=== PATIENT | male | born 1940 | race Caucasian/White ===

== ENCOUNTER 2017-05-27 16:19 | Inpatient (IN) ==
[2017-05-27] MEDS ORDERED: GLUCAGON 1 MG VIAL IM PRN (16:27)
[2017-05-27] MEDS ORDERED: DEXTROSE 50% 25 GM/50 ML VIAL IV PRN (16:27)
[2017-05-27] MEDS ORDERED: ALBUTEROL/IPRATROPIUM 3 ML NEB RESP TX PRN (16:27)
[2017-05-27] MEDS ORDERED: ONDANSETRON ODT 4 MG TABLET PO PRN (16:34)
[2017-05-27] MEDS ORDERED: THEOPHYLLINE ER 100 MG TABLET PO SCH (17:00)
[2017-05-27 19:49] LABS: Basophils % 0.4 % (0.0-0.8); Eosinophils # 0.1 10*3/uL (0.0-0.87); Eosinophils % 1.7 % (0.00-10.9); Hematocrit 34.3 VOL% (42.0-52.0); Hemoglobin 10.5 GM/DL (14.0-18.0); Immature Granulocytes % 1.1 %; Immature Granulocytes Absolute 0.09 #; Lymphocytes % 12.1 % (21.2-54.2); Mean Corpuscular HGB Conc 30.6 GM/DL (32-36); Mean Corpuscular Hemoglobin 26 PG (27-34); Mean Corpuscular Volume 84.5 FL (87-102); Mean Platelet Volume 11.5 FL (9.6-12.0); Monocytes # 0.4 10*3/uL (0.11-0.8); Monocytes % 4.4 % (1.7-12.7); Neutrophils # 6.7 10*3/uL (1.4-7.4); Neutrophils % 80.3 % (38.7-73.9); Platelet Count 251 T/CUMM (130-400); Red Blood Count 4.06 MC/CUMM (3.8-5.5); Red Cell Distribution Width 14.2 % (9.3-17.3); White Blood Count 8.3 T/CUMM (4-12)
[2017-05-27 20:11] LABS: % Iron Saturation 3.7 % (18-50)
[2017-05-27 20:21] LABS: Alanine Aminotransferase 23 U/L (16-61); Albumin 4.2 G/DL (3.4-5.0); Alkaline Phosphatase 53 U/L (45-117); Aspartate Amino Transferase 12 U/L (0-37); Bilirubin,Total < 0.39 MG/DL (0.2-1.0); Blood Urea Nitrogen 19 MG/DL (7-18); Calcium 9.6 MG/DL (8.5-10.1); Glucose 200 MG/DL (74-106); Magnesium 1.8 MG/DL (1.8-2.4); Osmolality,Calculated 282.7 MOS/KG (273-304); Potassium 4.7 MMOL/L (3.5-5.1); Sodium 138 MMOL/L (136-145); Thyroid Stimulating Hormone 0.579 uIU/ml (0.358-3.74); Total Protein 7.7 G/DL (6.4-8.3)
[2017-05-27] MEDS: ALBUTEROL/IPRATROPIUM 3 ML NEB RESP TX SCH (20:51)
[2017-05-27] MEDS: GABAPENTIN 100 MG CAPSULE PO SCH (21:49)
[2017-05-27] MEDS: MONTELUKAST 10 MG TABLET PO SCH (21:49)
[2017-05-27] MEDS: THEOPHYLLINE ER (24 HR) 200 MG CAPSULE PO SCH (21:49)
[2017-05-27] MEDS: LORazepam 0.5 MG TABLET PO SCH (21:50)
[2017-05-27] MEDS: BENZONATATE 100 MG CAPSULE PO SCH (21:50)
[2017-05-27] MEDS: SUCRALFATE 1 GM TABLET PO SCH (21:50)
[2017-05-27] MEDS: PANTOPRAZOLE 40 MG TABLET PO SCH (21:51)
[2017-05-27] MEDS: methylPREDNISolone SOD SUC 40 MG/1 ML VIAL IV SCH (21:51)
[2017-05-27] MEDS: metFORMIN 500 MG TABLET PO SCH (21:51)
[2017-05-27] MEDS: INSULIN REGULAR 100 UNIT/ML SUBCUT SCH ×2 (21:53→21:54)
[2017-05-27] MEDS: MEROPENEM 1,000 MG in SYRINGE 1 EACH IV SCH (22:03)
[2017-05-27] MEDS: SODIUM CHLORIDE 0.45% 1,000 ML IV SCH (22:07)
[2017-05-27] MEDS: TOLTERODINE 2 MG TABLET PO SCH (22:42)
[2017-05-28] MEDS: ALBUTEROL/IPRATROPIUM 3 ML NEB RESP TX SCH ×4 (02:13→19:50)
[2017-05-28 02:47] LABS: Apearance,Urine CLEAR (Clear); Bilirubin,Urine Negative (Negative); Blood, Urine Small mg/dL (Negative); Glucose,Urine (UA) 50 mg/dL (Negative); Ketones,Urine 5 mg/dL (Negative); Mucus,Urine Occasional /LPF (Occasional); Nitrite,Urine Negative (Negative); Protein,Urine Negative; RBC,Urine <1 /HPF (0-4); Urine Color Yellow (Yellow); Urine Specific Gravity 1.026 (1.001-1.035); Urine Urobilinogen < 2.0 EU/DL (0.2-1.0); WBC,Urine <1 /HPF (0-6)
[2017-05-28] MEDS: MEROPENEM 1,000 MG in SYRINGE 1 EACH IV SCH ×3 (04:06→21:00)
[2017-05-28 04:44] LABS: Basophils % 0.4 % (0.0-0.8); Eosinophils % 0.1 % (0.00-10.9); Hematocrit 31.3 VOL% (42.0-52.0); Hemoglobin 9.9 GM/DL (14.0-18.0); Immature Granulocytes % 1.5 %; Immature Granulocytes Absolute 0.13 #; Lymphocytes # 1.1 10*3/uL (1.4-4.0); Lymphocytes % 13.1 % (21.2-54.2); Mean Corpuscular HGB Conc 31.6 GM/DL (32-36); Mean Corpuscular Hemoglobin 26 PG (27-34); Monocytes # 0.2 10*3/uL (0.11-0.8); Monocytes % 2.7 % (1.7-12.7); Neutrophils # 7.1 10*3/uL (1.4-7.4); Neutrophils % 82.2 % (38.7-73.9); Platelet Count 236 T/CUMM (130-400); Red Blood Count 3.77 MC/CUMM (3.8-5.5); White Blood Count 8.6 T/CUMM (4-12)
[2017-05-28 04:57] LABS: Calcium 9.2 MG/DL (8.5-10.1); Magnesium 1.7 MG/DL (1.8-2.4); Osmolality,Calculated 276.1 MOS/KG (273-304); Potassium 4.5 MMOL/L (3.5-5.1)
[2017-05-28] MEDS: glipiZIDE 10 MG TABLET PO SCH ×2 (10:09→16:49)
[2017-05-28] MEDS: LORazepam 0.5 MG TABLET PO SCH ×2 (10:10→20:58)
[2017-05-28] MEDS: SERTRALINE 100 MG TABLET PO SCH (10:10)
[2017-05-28] MEDS: ROFLUMILAST 500 MCG TABLET PO SCH (10:10)
[2017-05-28] MEDS: BICALUTAMIDE 50 MG TABLET PO SCH (10:10)
[2017-05-28] MEDS: MONTELUKAST 10 MG TABLET PO SCH ×2 (10:10→20:59)
[2017-05-28] MEDS: metFORMIN 500 MG TABLET PO SCH ×3 (10:11→16:49)
[2017-05-28] MEDS: ASPIRIN EC 81 MG TABLET PO SCH (10:11)
[2017-05-28] MEDS: CALCIUM (CARBONATE)/VITAMIN D 600 MG-400 UNIT TABLET PO SCH (10:11)
[2017-05-28] MEDS: PANTOPRAZOLE 40 MG TABLET PO SCH ×2 (10:11→20:59)
[2017-05-28] MEDS: methylPREDNISolone SOD SUC 40 MG/1 ML VIAL IV SCH ×2 (10:12→20:59)
[2017-05-28] MEDS: GABAPENTIN 100 MG CAPSULE PO SCH ×2 (10:12→20:59)
[2017-05-28] MEDS: BENZONATATE 100 MG CAPSULE PO SCH ×3 (10:21→20:59)
[2017-05-28] MEDS: TOLTERODINE 2 MG TABLET PO SCH ×2 (10:21→20:59)
[2017-05-28] MEDS: SUCRALFATE 1 GM TABLET PO SCH ×4 (10:21→20:59)
[2017-05-28] MEDS: INSULIN REGULAR 100 UNIT/ML SUBCUT SCH ×4 (12:13→21:05)
[2017-05-28] MEDS: ACETAMINOPHEN 325 MG TABLET PO PRN (13:06)
[2017-05-28] MEDS: SODIUM CHLORIDE 0.45% 1,000 ML IV SCH (13:09)
[2017-05-28] MEDS: MAGNESIUM CHLORIDE 64 MG TABLET PO SCH ×2 (15:39→20:59)
[2017-05-28] MEDS: FERROUS SULFATE 325 MG TABLET PO SCH ×2 (15:39→20:59)
[2017-05-28] MEDS: THEOPHYLLINE ER (24 HR) 200 MG CAPSULE PO SCH (16:49)
[2017-05-29] MEDS: ALBUTEROL/IPRATROPIUM 3 ML NEB RESP TX SCH ×4 (00:54→21:12)
[2017-05-29] MEDS: SODIUM CHLORIDE 0.45% 1,000 ML IV SCH ×2 (03:42→10:23)
[2017-05-29] MEDS: MEROPENEM 1,000 MG in SYRINGE 1 EACH IV SCH ×3 (03:46→20:58)
[2017-05-29] MEDS: glipiZIDE 10 MG TABLET PO SCH ×2 (07:19→16:34)
[2017-05-29] MEDS: CALCIUM (CARBONATE)/VITAMIN D 600 MG-400 UNIT TABLET PO SCH (10:20)
[2017-05-29] MEDS: FERROUS SULFATE 325 MG TABLET PO SCH ×2 (10:20→20:53)
[2017-05-29] MEDS: MAGNESIUM CHLORIDE 64 MG TABLET PO SCH ×2 (10:20→20:52)
[2017-05-29] MEDS: BICALUTAMIDE 50 MG TABLET PO SCH (10:20)
[2017-05-29] MEDS: TOLTERODINE 2 MG TABLET PO SCH ×2 (10:20→20:52)
[2017-05-29] MEDS: PANTOPRAZOLE 40 MG TABLET PO SCH ×2 (10:21→20:53)
[2017-05-29] MEDS: SERTRALINE 100 MG TABLET PO SCH (10:21)
[2017-05-29] MEDS: ROFLUMILAST 500 MCG TABLET PO SCH (10:21)
[2017-05-29] MEDS: MONTELUKAST 10 MG TABLET PO SCH ×2 (10:21→20:52)
[2017-05-29] MEDS: LORazepam 0.5 MG TABLET PO SCH ×2 (10:21→20:53)
[2017-05-29] MEDS: ASPIRIN EC 81 MG TABLET PO SCH (10:21)
[2017-05-29] MEDS: GABAPENTIN 100 MG CAPSULE PO SCH ×2 (10:21→20:52)
[2017-05-29] MEDS: BENZONATATE 100 MG CAPSULE PO SCH ×3 (10:21→20:52)
[2017-05-29] MEDS: INSULIN REGULAR 100 UNIT/ML SUBCUT SCH ×4 (10:22→22:14)
[2017-05-29] MEDS: SUCRALFATE 1 GM TABLET PO SCH ×4 (10:22→20:52)
[2017-05-29] MEDS: methylPREDNISolone SOD SUC 40 MG/1 ML VIAL IV SCH ×2 (10:22→20:56)
[2017-05-29] MEDS: metFORMIN 500 MG TABLET PO SCH ×3 (10:22→17:35)
[2017-05-29] MEDS: THEOPHYLLINE ER (24 HR) 200 MG CAPSULE PO SCH (17:34)
[2017-05-30] MEDS: ALBUTEROL/IPRATROPIUM 3 ML NEB RESP TX SCH ×4 (01:03→20:12)
[2017-05-30] MEDS: SODIUM CHLORIDE 0.45% 1,000 ML IV SCH ×2 (03:39→20:24)
[2017-05-30] MEDS: ACETAMINOPHEN 325 MG TABLET PO PRN ×2 (04:38→20:29)
[2017-05-30] MEDS: MEROPENEM 1,000 MG in SYRINGE 1 EACH IV SCH ×3 (04:44→20:30)
[2017-05-30] MEDS: LORazepam 0.5 MG TABLET PO SCH ×2 (09:11→20:28)
[2017-05-30] MEDS: MONTELUKAST 10 MG TABLET PO SCH ×2 (09:11→20:28)
[2017-05-30] MEDS: GABAPENTIN 100 MG CAPSULE PO SCH ×2 (09:11→20:29)
[2017-05-30] MEDS: glipiZIDE 10 MG TABLET PO SCH ×2 (09:11→16:43)
[2017-05-30] MEDS: SUCRALFATE 1 GM TABLET PO SCH ×4 (09:11→20:29)
[2017-05-30] MEDS: PANTOPRAZOLE 40 MG TABLET PO SCH ×2 (09:11→20:29)
[2017-05-30] MEDS: BENZONATATE 100 MG CAPSULE PO SCH ×3 (09:11→20:29)
[2017-05-30] MEDS: MAGNESIUM CHLORIDE 64 MG TABLET PO SCH ×2 (09:11→20:28)
[2017-05-30] MEDS: SERTRALINE 100 MG TABLET PO SCH (09:11)
[2017-05-30] MEDS: metFORMIN 500 MG TABLET PO SCH ×3 (09:11→16:43)
[2017-05-30] MEDS: ASPIRIN EC 81 MG TABLET PO SCH (09:11)
[2017-05-30] MEDS: BICALUTAMIDE 50 MG TABLET PO SCH (09:11)
[2017-05-30] MEDS: ROFLUMILAST 500 MCG TABLET PO SCH (09:11)
[2017-05-30] MEDS: FERROUS SULFATE 325 MG TABLET PO SCH ×2 (09:11→20:29)
[2017-05-30] MEDS: TOLTERODINE 2 MG TABLET PO SCH ×2 (09:12→20:28)
[2017-05-30] MEDS: INSULIN REGULAR 100 UNIT/ML SUBCUT SCH ×4 (09:12→21:15)
[2017-05-30] MEDS: CALCIUM (CARBONATE)/VITAMIN D 600 MG-400 UNIT TABLET PO SCH (09:12)
[2017-05-30] MEDS: methylPREDNISolone SOD SUC 40 MG/1 ML VIAL IV SCH ×2 (09:12→20:25)
[2017-05-30] MEDS: THEOPHYLLINE ER (24 HR) 200 MG CAPSULE PO SCH (16:43)
[2017-05-31] MEDS: ALBUTEROL/IPRATROPIUM 3 ML NEB RESP TX SCH ×4 (01:18→19:37)
[2017-05-31] MEDS: MEROPENEM 1,000 MG in SYRINGE 1 EACH IV SCH ×3 (04:45→20:56)
[2017-05-31] MEDS: ROFLUMILAST 500 MCG TABLET PO SCH (09:04)
[2017-05-31] MEDS: BENZONATATE 100 MG CAPSULE PO SCH ×3 (09:04→20:58)
[2017-05-31] MEDS: FERROUS SULFATE 325 MG TABLET PO SCH ×2 (09:04→20:57)
[2017-05-31] MEDS: LORazepam 0.5 MG TABLET PO SCH ×2 (09:04→20:57)
[2017-05-31] MEDS: MAGNESIUM CHLORIDE 64 MG TABLET PO SCH ×2 (09:04→20:58)
[2017-05-31] MEDS: glipiZIDE 10 MG TABLET PO SCH ×2 (09:04→15:45)
[2017-05-31] MEDS: SUCRALFATE 1 GM TABLET PO SCH ×4 (09:04→20:58)
[2017-05-31] MEDS: MONTELUKAST 10 MG TABLET PO SCH ×2 (09:04→21:23)
[2017-05-31] MEDS: metFORMIN 500 MG TABLET PO SCH ×4 (09:04→15:46)
[2017-05-31] MEDS: CALCIUM (CARBONATE)/VITAMIN D 600 MG-400 UNIT TABLET PO SCH (09:04)
[2017-05-31] MEDS: PANTOPRAZOLE 40 MG TABLET PO SCH ×2 (09:04→20:58)
[2017-05-31] MEDS: GABAPENTIN 100 MG CAPSULE PO SCH ×2 (09:04→21:03)
[2017-05-31] MEDS: BICALUTAMIDE 50 MG TABLET PO SCH (09:04)
[2017-05-31] MEDS: SERTRALINE 100 MG TABLET PO SCH (09:04)
[2017-05-31] MEDS: ASPIRIN EC 81 MG TABLET PO SCH (09:04)
[2017-05-31] MEDS: TOLTERODINE 2 MG TABLET PO SCH ×2 (09:05→21:03)
[2017-05-31] MEDS: methylPREDNISolone SOD SUC 40 MG/1 ML VIAL IV SCH ×2 (09:05→20:58)
[2017-05-31] MEDS: INSULIN REGULAR 100 UNIT/ML SUBCUT SCH ×4 (09:05→21:07)
[2017-05-31] MEDS ORDERED: AMINOPHYLLINE 250 MG in SODIUM CHLORIDE 0.9% 100 ML IV ONE (11:00)
[2017-05-31] MEDS: ALBUTEROL 0.4 MG/ML 30 ML/BOTTLE PO SCH ×2 (11:30→18:21)
[2017-05-31] MEDS: FLUCONAZOLE INJ 100 MG in IV BAG 1 EACH IV SCH (12:00)
[2017-05-31] MEDS: ACETAMINOPHEN 325 MG TABLET PO PRN (12:25)
[2017-05-31] MEDS: SODIUM CHLORIDE 0.45% 1,000 ML IV SCH (14:20)
[2017-05-31] MEDS: THEOPHYLLINE ER (24 HR) 200 MG CAPSULE PO SCH (18:21)
[2017-06-01] MEDS: ALBUTEROL/IPRATROPIUM 3 ML NEB RESP TX SCH ×4 (00:15→19:27)
[2017-06-01] MEDS: MEROPENEM 1,000 MG in SYRINGE 1 EACH IV SCH ×3 (03:48→20:05)
[2017-06-01] MEDS: ALBUTEROL 0.4 MG/ML 30 ML/BOTTLE PO SCH ×3 (03:48→18:25)
[2017-06-01] MEDS: SODIUM CHLORIDE 0.45% 1,000 ML IV SCH (03:50)
[2017-06-01] MEDS: SUCRALFATE 1 GM TABLET PO SCH ×4 (08:47→20:07)
[2017-06-01] MEDS: ASPIRIN EC 81 MG TABLET PO SCH (08:47)
[2017-06-01] MEDS: BICALUTAMIDE 50 MG TABLET PO SCH (08:47)
[2017-06-01] MEDS: MAGNESIUM CHLORIDE 64 MG TABLET PO SCH ×2 (08:47→20:06)
[2017-06-01] MEDS: metFORMIN 500 MG TABLET PO SCH ×3 (08:47→16:47)
[2017-06-01] MEDS: glipiZIDE 10 MG TABLET PO SCH ×2 (08:47→15:30)
[2017-06-01] MEDS: MONTELUKAST 10 MG TABLET PO SCH ×2 (08:47→20:07)
[2017-06-01] MEDS: CALCIUM (CARBONATE)/VITAMIN D 600 MG-400 UNIT TABLET PO SCH (08:47)
[2017-06-01] MEDS: BENZONATATE 100 MG CAPSULE PO SCH ×3 (08:47→20:06)
[2017-06-01] MEDS: SERTRALINE 100 MG TABLET PO SCH (08:47)
[2017-06-01] MEDS: TOLTERODINE 2 MG TABLET PO SCH ×2 (08:47→20:06)
[2017-06-01] MEDS: GABAPENTIN 100 MG CAPSULE PO SCH ×2 (08:47→20:07)
[2017-06-01] MEDS: PANTOPRAZOLE 40 MG TABLET PO SCH ×2 (08:47→20:06)
[2017-06-01] MEDS: FERROUS SULFATE 325 MG TABLET PO SCH ×2 (08:47→20:06)
[2017-06-01] MEDS: LORazepam 0.5 MG TABLET PO SCH ×2 (08:47→20:06)
[2017-06-01] MEDS: THEOPHYLLINE ER (24 HR) 200 MG CAPSULE PO SCH ×2 (08:48→16:47)
[2017-06-01] MEDS: methylPREDNISolone SOD SUC 40 MG/1 ML VIAL IV SCH ×2 (08:48→20:05)
[2017-06-01] MEDS: INSULIN REGULAR 100 UNIT/ML SUBCUT SCH ×4 (08:48→22:51)
[2017-06-01] MEDS: ROFLUMILAST 500 MCG TABLET PO SCH (08:48)
[2017-06-01] MEDS: FLUCONAZOLE INJ 100 MG in IV BAG 1 EACH IV SCH (11:11)
[2017-06-02] MEDS: ALBUTEROL/IPRATROPIUM 3 ML NEB RESP TX SCH ×3 (00:21→15:19)
[2017-06-02] MEDS: ALBUTEROL 0.4 MG/ML 30 ML/BOTTLE PO SCH ×2 (03:43→11:25)
[2017-06-02] MEDS: MEROPENEM 1,000 MG in SYRINGE 1 EACH IV SCH ×2 (04:43→15:22)
[2017-06-02] MEDS: SODIUM CHLORIDE 0.45% 1,000 ML IV SCH (08:57)
[2017-06-02] MEDS: BICALUTAMIDE 50 MG TABLET PO SCH (11:23)
[2017-06-02] MEDS: GABAPENTIN 100 MG CAPSULE PO SCH (11:23)
[2017-06-02] MEDS: TOLTERODINE 2 MG TABLET PO SCH (11:24)
[2017-06-02] MEDS: CALCIUM (CARBONATE)/VITAMIN D 600 MG-400 UNIT TABLET PO SCH (11:24)
[2017-06-02] MEDS: FERROUS SULFATE 325 MG TABLET PO SCH (11:24)
[2017-06-02] MEDS: glipiZIDE 10 MG TABLET PO SCH (11:24)
[2017-06-02] MEDS: MAGNESIUM CHLORIDE 64 MG TABLET PO SCH (11:24)
[2017-06-02] MEDS: BENZONATATE 100 MG CAPSULE PO SCH ×2 (11:24→15:22)
[2017-06-02] MEDS: LORazepam 0.5 MG TABLET PO SCH (11:24)
[2017-06-02] MEDS: MONTELUKAST 10 MG TABLET PO SCH (11:24)
[2017-06-02] MEDS: THEOPHYLLINE ER (24 HR) 200 MG CAPSULE PO SCH (11:24)
[2017-06-02] MEDS: metFORMIN 500 MG TABLET PO SCH ×2 (11:24→15:21)
[2017-06-02] MEDS: SERTRALINE 100 MG TABLET PO SCH (11:24)
[2017-06-02] MEDS: ASPIRIN EC 81 MG TABLET PO SCH (11:25)
[2017-06-02] MEDS: SUCRALFATE 1 GM TABLET PO SCH ×2 (11:25→15:21)
[2017-06-02] MEDS: PANTOPRAZOLE 40 MG TABLET PO SCH (11:25)
[2017-06-02] MEDS: ROFLUMILAST 500 MCG TABLET PO SCH (11:25)
[2017-06-02 11:31] VITALS: BP 126/74
[2017-06-02] MEDS: FLUCONAZOLE INJ 100 MG in IV BAG 1 EACH IV SCH (12:58)
[2017-06-02] MEDS: methylPREDNISolone SOD SUC 40 MG/1 ML VIAL IV SCH (12:58)
[2017-06-02] MEDS: INSULIN REGULAR 100 UNIT/ML SUBCUT SCH ×2 (12:58→15:21)
[2017-06-02 14:11] LABS: Procalcitonin, S < 0.10 ng/mL (<=0.15)
== END 2017-06-02 14:03 | disposition home or self-care (01) | DRG 178 ==
LOC: N.5E 18:21
PROVIDERS: ADMIT Internal Medicine Pulmonary Disease; ATTEND Internal Medicine Pulmonary Disease

== ENCOUNTER 2018-06-29 17:42 | Inpatient (IN) ==
[2018-06-29] MEDS ORDERED: methylPREDNISolone SOD SUC 125 MG/2 ML VIAL IV STA (19:24)
[2018-06-29] MEDS ORDERED: ALBUTEROL/IPRATROPIUM 3 ML NEB RESP TX STA (19:24)
[2018-06-29] MEDS ORDERED: cefTRIAXone 1,000 MG in SODIUM CHLORIDE 0.9% 100 ML IV STA (19:27)
[2018-06-29 19:34] LABS: Basophils # 0.1 10*3/uL (0.0-0.2); Basophils % 0.5 % (0.0-0.8); Eosinophils # 0.4 10*3/uL (0.0-0.87); Eosinophils % 3.8 % (0.00-10.9); Hemoglobin 12.7 GM/DL (14.0-18.0); Immature Granulocytes % 3.7 %; Immature Granulocytes Absolute 0.42 #; Lymphocytes # 1.2 10*3/uL (1.4-4.0); Lymphocytes % 10.3 % (21.2-54.2); Mean Corpuscular HGB Conc 32.6 GM/DL (32-36); Mean Corpuscular Hemoglobin 29 PG (27-34); Mean Corpuscular Volume 88.6 FL (87-102); Mean Platelet Volume 11.8 FL (9.6-12.0); Monocytes # 0.5 10*3/uL (0.11-0.8); Monocytes % 4.5 % (1.7-12.7); Neutrophils # 8.8 10*3/uL (1.4-7.4); Neutrophils % 77.2 % (38.7-73.9); Platelet Count 232 T/CUMM (130-400); Red Cell Distribution Width 14.1 % (9.3-17.3); White Blood Count 11.4 T/CUMM (4-12)
[2018-06-29 20:24] LABS: Bilirubin,Total 0.5 MG/DL (0.2-1.0); Calcium 9.7 MG/DL (8.5-10.1); Potassium 4.3 MMOL/L (3.5-5.1)
[2018-06-29] MEDS ORDERED: ALBUTEROL 2.5 MG/3 ML NEB RESP TX PRN (22:40)
[2018-06-29] MEDS ORDERED: BENZONATATE 100 MG CAPSULE PO PRN (22:47)
[2018-06-29] MEDS ORDERED: traZODone 50 MG TABLET PO PRN (22:47)
[2018-06-29] MEDS ORDERED: ACETAMINOPHEN 325 MG TABLET PO PRN (22:53)
[2018-06-29] MEDS ORDERED: ONDANSETRON 4 MG/2 ML VIAL IV PRN (22:53)
[2018-06-29] MEDS ORDERED: DEXTROSE 50% 25 GM/50 ML SYRINGE IV PRN (22:53)
[2018-06-29] MEDS ORDERED: GLUCAGON 1 MG VIAL IM PRN (22:53)
[2018-06-29] MEDS ORDERED: DOCUSATE SODIUM 100 MG CAPSULE PO PRN (22:53)
[2018-06-29] MEDS ORDERED: ASENAPINE MALEATE 5 MG SL SCH (23:00)
[2018-06-29] MEDS: GABAPENTIN 100 MG CAPSULE PO SCH (23:42)
[2018-06-29] MEDS: PANTOPRAZOLE 40 MG TABLET PO SCH (23:42)
[2018-06-29] MEDS: ENOXAPARIN 40 MG/0.4 ML SYRINGE SUBCUT SCH (23:43)
[2018-06-29] MEDS: INSULIN REGULAR 100 UNIT/ML SUBCUT SCH (23:43)
[2018-06-29] MEDS: FERROUS SULFATE 325 MG TABLET PO SCH (23:45)
[2018-06-29] MEDS: LEVOFLOXACIN INJ 750 MG in PREMIX 1 EACH IV SCH (23:45)
[2018-06-30] MEDS: PIPERACILLIN/TAZOBACTAM 3,375 MG in SODIUM CHLORIDE 0.9% 100 ML IV SCH ×3 (01:45→22:27)
[2018-06-30] MEDS: ALBUTEROL/IPRATROPIUM 3 ML NEB RESP TX SCH ×4 (01:52→20:50)
[2018-06-30 05:35] LABS: Basophils % 0.5 % (0.0-0.8); Eosinophils # 0.2 10*3/uL (0.0-0.87); Eosinophils % 2.1 % (0.00-10.9); Hemoglobin 11.6 GM/DL (14.0-18.0); Immature Granulocytes % 2.4 %; Lymphocytes # 1.6 10*3/uL (1.4-4.0); Lymphocytes % 19.5 % (21.2-54.2); Mean Corpuscular HGB Conc 33.1 GM/DL (32-36); Mean Corpuscular Hemoglobin 29 PG (27-34); Mean Corpuscular Volume 87.3 FL (87-102); Mean Platelet Volume 10.9 FL (9.6-12.0); Monocytes # 0.8 10*3/uL (0.11-0.8); Monocytes % 9.5 % (1.7-12.7); Neutrophils # 5.4 10*3/uL (1.4-7.4); Platelet Count 213 T/CUMM (130-400); Red Blood Count 4.01 MC/CUMM (3.8-5.5); Red Cell Distribution Width 13.9 % (9.3-17.3); White Blood Count 8.2 T/CUMM (4-12)
[2018-06-30 05:54] LABS: Calcium 8.9 MG/DL (8.5-10.1); Osmolality,Calculated 274.2 MOS/KG (273-304); Potassium 3.6 MMOL/L (3.5-5.1)
[2018-06-30] MEDS ORDERED: Fluticasone/Umeclidin/Vilanter [Trelegy Ellipta 100-62.5-25] INH SCH (09:00)
[2018-06-30] MEDS ORDERED: PROSTEON PO SCH (09:00)
[2018-06-30] MEDS: GABAPENTIN 100 MG CAPSULE PO SCH ×2 (09:24→21:14)
[2018-06-30] MEDS: POTASSIUM CHLORIDE 10 MEQ TABLET PO SCH (09:24)
[2018-06-30] MEDS: OMEGA 3 ACID ETHYL ESTERS 1 GM CAPSULE PO SCH (09:24)
[2018-06-30] MEDS: PANTOPRAZOLE 40 MG TABLET PO SCH ×2 (09:25→21:14)
[2018-06-30] MEDS: glipiZIDE 10 MG TABLET PO SCH ×2 (09:25→17:39)
[2018-06-30] MEDS: CHOLECALCIFEROL 1,000 UNIT TABLET PO SCH (09:25)
[2018-06-30] MEDS: ASPIRIN EC 81 MG TABLET PO SCH (09:25)
[2018-06-30] MEDS: BICALUTAMIDE 50 MG TABLET PO SCH (09:26)
[2018-06-30] MEDS: predniSONE 20 MG TABLET PO SCH (09:28)
[2018-06-30] MEDS: INSULIN REGULAR 100 UNIT/ML SUBCUT SCH ×4 (09:29→21:21)
[2018-06-30] MEDS: TOLTERODINE LA 4 MG CAPSULE PO SCH (09:37)
[2018-06-30] MEDS: FLUTICASONE 50 MCG NASAL SPRAY 16 GM BOTTLE BOTH NARES SCH ×2 (12:05→21:20)
[2018-06-30] MEDS ORDERED: traMADol 50 MG TABLET PO PRN (16:03)
[2018-06-30] MEDS: VANCOMYCIN INJ 1,500 MG in SODIUM CHLORIDE 0.9% 500 ML IV SCH (17:53)
[2018-06-30] MEDS: BENZONATATE 100 MG CAPSULE PO SCH (21:13)
[2018-06-30] MEDS: ROSUVASTATIN 10 MG TABLET PO SCH (21:14)
[2018-06-30] MEDS: INSULIN GLARGINE 100 UNIT/ML SUBCUT SCH (21:21)
[2018-06-30] MEDS: ENOXAPARIN 40 MG/0.4 ML SYRINGE SUBCUT SCH (23:36)
[2018-07-01] MEDS: ALBUTEROL/IPRATROPIUM 3 ML NEB RESP TX SCH ×4 (00:47→21:08)
[2018-07-01] MEDS: LEVOFLOXACIN INJ 750 MG in PREMIX 1 EACH IV SCH (02:11)
[2018-07-01] MEDS: VANCOMYCIN INJ 1,500 MG in SODIUM CHLORIDE 0.9% 500 ML IV SCH ×2 (05:23→17:34)
[2018-07-01 05:35] LABS: Basophils % 0.4 % (0.0-0.8); Eosinophils # 0.2 10*3/uL (0.0-0.87); Eosinophils % 1.9 % (0.00-10.9); Hematocrit 36.4 VOL% (42.0-52.0); Hemoglobin 11.9 GM/DL (14.0-18.0); Immature Granulocytes % 3.1 %; Immature Granulocytes Absolute 0.26 #; Lymphocytes # 1.8 10*3/uL (1.4-4.0); Lymphocytes % 21.3 % (21.2-54.2); Mean Corpuscular HGB Conc 32.7 GM/DL (32-36); Mean Corpuscular Hemoglobin 29 PG (27-34); Mean Corpuscular Volume 88.1 FL (87-102); Mean Platelet Volume 11.5 FL (9.6-12.0); Monocytes # 0.8 10*3/uL (0.11-0.8); Monocytes % 9.3 % (1.7-12.7); Neutrophils # 5.4 10*3/uL (1.4-7.4); Platelet Count 216 T/CUMM (130-400); Red Blood Count 4.13 MC/CUMM (3.8-5.5); White Blood Count 8.4 T/CUMM (4-12)
[2018-07-01 05:56] LABS: Calcium 9.1 MG/DL (8.5-10.1); Osmolality,Calculated 284.3 MOS/KG (273-304); Potassium 3.5 MMOL/L (3.5-5.1)
[2018-07-01] MEDS: BENZONATATE 100 MG CAPSULE PO SCH ×3 (10:00→20:58)
[2018-07-01] MEDS: predniSONE 20 MG TABLET PO SCH (10:01)
[2018-07-01] MEDS: POTASSIUM CHLORIDE 10 MEQ TABLET PO SCH (10:01)
[2018-07-01] MEDS: BICALUTAMIDE 50 MG TABLET PO SCH (10:03)
[2018-07-01] MEDS: GABAPENTIN 100 MG CAPSULE PO SCH ×2 (10:03→20:58)
[2018-07-01] MEDS: OMEGA 3 ACID ETHYL ESTERS 1 GM CAPSULE PO SCH (10:03)
[2018-07-01] MEDS: glipiZIDE 10 MG TABLET PO SCH ×2 (10:03→17:22)
[2018-07-01] MEDS: FERROUS SULFATE 325 MG TABLET PO SCH (10:04)
[2018-07-01] MEDS: CHOLECALCIFEROL 1,000 UNIT TABLET PO SCH (10:04)
[2018-07-01] MEDS: PANTOPRAZOLE 40 MG TABLET PO SCH ×2 (10:04→20:58)
[2018-07-01] MEDS: PIPERACILLIN/TAZOBACTAM 3,375 MG in SODIUM CHLORIDE 0.9% 100 ML IV SCH ×3 (10:04→23:23)
[2018-07-01] MEDS: ASPIRIN EC 81 MG TABLET PO SCH (10:04)
[2018-07-01] MEDS: INSULIN REGULAR 100 UNIT/ML SUBCUT SCH ×4 (10:04→21:00)
[2018-07-01] MEDS: TOLTERODINE LA 4 MG CAPSULE PO SCH (10:05)
[2018-07-01] MEDS: FLUTICASONE 50 MCG NASAL SPRAY 16 GM BOTTLE BOTH NARES SCH ×2 (10:05→21:01)
[2018-07-01] MEDS ORDERED: MELATONIN 3 MG TABLET PO PRN (18:18)
[2018-07-01] MEDS: INSULIN GLARGINE 100 UNIT/ML SUBCUT SCH (20:58)
[2018-07-01] MEDS: ROSUVASTATIN 10 MG TABLET PO SCH (20:58)
[2018-07-01] MEDS: ENOXAPARIN 40 MG/0.4 ML SYRINGE SUBCUT SCH (23:22)
[2018-07-02] MEDS: ALBUTEROL/IPRATROPIUM 3 ML NEB RESP TX SCH ×3 (01:43→13:19)
[2018-07-02] MEDS: LEVOFLOXACIN INJ 750 MG in PREMIX 1 EACH IV SCH (03:20)
[2018-07-02] MEDS: VANCOMYCIN INJ 1,500 MG in SODIUM CHLORIDE 0.9% 500 ML IV SCH (04:53)
[2018-07-02] MEDS: OMEGA 3 ACID ETHYL ESTERS 1 GM CAPSULE PO SCH (09:23)
[2018-07-02] MEDS: POTASSIUM CHLORIDE 10 MEQ TABLET PO SCH (09:24)
[2018-07-02] MEDS: BICALUTAMIDE 50 MG TABLET PO SCH (09:24)
[2018-07-02] MEDS: glipiZIDE 10 MG TABLET PO SCH (09:24)
[2018-07-02] MEDS: PANTOPRAZOLE 40 MG TABLET PO SCH (09:24)
[2018-07-02] MEDS: GABAPENTIN 100 MG CAPSULE PO SCH (09:24)
[2018-07-02] MEDS: CHOLECALCIFEROL 1,000 UNIT TABLET PO SCH (09:24)
[2018-07-02] MEDS: ASPIRIN EC 81 MG TABLET PO SCH (09:24)
[2018-07-02] MEDS: BENZONATATE 100 MG CAPSULE PO SCH (09:24)
[2018-07-02] MEDS: FLUTICASONE 50 MCG NASAL SPRAY 16 GM BOTTLE BOTH NARES SCH (09:25)
[2018-07-02] MEDS: TOLTERODINE LA 4 MG CAPSULE PO SCH (09:28)
[2018-07-02] MEDS: PIPERACILLIN/TAZOBACTAM 3,375 MG in SODIUM CHLORIDE 0.9% 100 ML IV SCH (09:29)
[2018-07-02] MEDS: INSULIN REGULAR 100 UNIT/ML SUBCUT SCH ×2 (11:20→12:41)
[2018-07-02] MEDS ORDERED: FLUCONAZOLE 100 MG TABLET PO SCH (12:00)
[2018-07-02 12:20] VITALS: BP 129/82
[2018-07-02] MEDS ORDERED: DOXYCYCLINE HYCLATE 100 MG CAPSULE PO SCH (21:00)
[2018-07-03] MEDS ORDERED: MAGNESIUM CHLORIDE 64 MG TABLET PO SCH (09:00)
== END 2018-07-02 14:15 | disposition home or self-care (01) | DRG 192 ==
LOC: EDUNIT# → EDBD → N.ED 17:42 → N.EDINP 17:42 → N.4E 22:54
PROVIDERS: ADMIT Hospitalist; ATTEND Hospitalist

== ENCOUNTER 2019-07-26 12:46 | Inpatient (IN) ==
[2019-07-26] MEDS ORDERED: methylPREDNISolone SOD SUC 125 MG/2 ML VIAL IV STA (14:14)
[2019-07-26] MEDS ORDERED: ALBUTEROL/IPRATROPIUM 3 ML NEB RESP TX STA (14:14)
[2019-07-26 14:48] LABS: Basophils % 0.6 % (0.0-0.8); Eosinophils # 0.8 10*3/uL (0.0-0.87); Eosinophils % 12.1 % (0.00-10.9); Hematocrit 37.3 VOL% (42.0-52.0); Immature Granulocytes % 2.1 %; Immature Granulocytes Absolute 0.14 #; Lymphocytes # 0.9 10*3/uL (1.4-4.0); Lymphocytes % 13.9 % (21.2-54.2); Mean Corpuscular HGB Conc 32.2 GM/DL (32-36); Mean Corpuscular Volume 88.6 FL (87-102); Monocytes % 8.1 % (1.7-12.7); Neutrophils % 63.2 % (38.7-73.9); Platelet Count 161 T/CUMM (130-400); Red Blood Count 4.21 MC/CUMM (3.8-5.5); Red Cell Distribution Width 14.6 % (9.3-17.3); White Blood Count 6.6 T/CUMM (4-12)
[2019-07-26 15:08] LABS: Eosinophils 13 % (0-10); Lymphocytes 14 % (20-55); Platelet Estimate Adequate; Segmented Neutrophils 64 % (50-85); Total Cells Counted 100
[2019-07-26 15:09] LABS: Albumin 3.9 G/DL (3.4-5.0); Bilirubin,Total 0.4 MG/DL (0.2-1.0); Calcium 9.3 MG/DL (8.5-10.1); Osmolality,Calculated 274.2 MOS/KG (273-304); Total Protein 7.7 G/DL (6.4-8.3)
[2019-07-26] MEDS ORDERED: SODIUM CHLORIDE 0.9% 1,000 ML IV STA (15:16)
[2019-07-26] MEDS ORDERED: PIPERACILLIN/TAZOBACTAM 3,375 MG in SODIUM CHLORIDE 0.9% 100 ML IV STA (15:52)
[2019-07-26] MEDS ORDERED: DEXTROSE 10% 250 ML BAG IV PRN (16:26)
[2019-07-26] MEDS ORDERED: ONDANSETRON 4 MG/2 ML VIAL IV PRN (16:26)
[2019-07-26] MEDS ORDERED: GLUCAGON 1 MG VIAL IM PRN (16:26)
[2019-07-26] MEDS: INSULIN REGULAR 100 UNIT/ML SUBCUT SCH ×2 (18:35→21:30)
[2019-07-26] MEDS: LEVOFLOXACIN INJ 750 MG in PREMIX 1 EACH IV SCH (18:40)
[2019-07-26] MEDS: ALBUTEROL/IPRATROPIUM 3 ML NEB RESP TX SCH (19:08)
[2019-07-26] MEDS: ENOXAPARIN 40 MG/0.4 ML SYRINGE SUBCUT SCH (21:31)
[2019-07-27] MEDS: ALBUTEROL/IPRATROPIUM 3 ML NEB RESP TX SCH ×4 (00:09→19:32)
[2019-07-27] MEDS: PIPERACILLIN/TAZOBACTAM 3,375 MG in SODIUM CHLORIDE 0.9% 100 ML IV SCH ×5 (00:19→22:35)
[2019-07-27 06:50] LABS: Basophils % 0.4 % (0.0-0.8); Eosinophils # 0.1 10*3/uL (0.0-0.87); Hematocrit 33.4 VOL% (42.0-52.0); Hemoglobin 11.1 GM/DL (14.0-18.0); Immature Granulocytes % 2.2 %; Immature Granulocytes Absolute 0.17 #; Lymphocytes # 1.1 10*3/uL (1.4-4.0); Lymphocytes % 13.6 % (21.2-54.2); Mean Corpuscular HGB Conc 33.2 GM/DL (32-36); Mean Corpuscular Volume 87.2 FL (87-102); Mean Platelet Volume 10.8 FL (9.6-12.0); Neutrophils % 71.8 % (38.7-73.9); Platelet Count 159 T/CUMM (130-400); Red Blood Count 3.83 MC/CUMM (3.8-5.5); Red Cell Distribution Width 14.5 % (9.3-17.3); White Blood Count 7.8 T/CUMM (4-12)
[2019-07-27 07:15] LABS: Albumin 3.3 G/DL (3.4-5.0); Bilirubin,Total 0.4 MG/DL (0.2-1.0); Calcium 8.6 MG/DL (8.5-10.1); Osmolality,Calculated 281.7 MOS/KG (273-304); Total Protein 6.9 G/DL (6.4-8.3)
[2019-07-27] MEDS: PANTOPRAZOLE 40 MG TABLET PO SCH (08:25)
[2019-07-27] MEDS ORDERED: predniSONE 20 MG TABLET PO SCH (09:00)
[2019-07-27] MEDS: INSULIN REGULAR 100 UNIT/ML SUBCUT SCH ×4 (09:10→21:15)
[2019-07-27] MEDS: ACETAMINOPHEN 325 MG TABLET PO PRN ×2 (10:26→14:22)
[2019-07-27] MEDS: DORNASE ALFA 2.5 MG/2.5 ML VIAL RESP TX SCH ×2 (11:26→19:42)
[2019-07-27] MEDS: methylPREDNISolone SOD SUC 40 MG/1 ML VIAL IV SCH ×2 (12:37→22:36)
[2019-07-27] MEDS: LEVOFLOXACIN INJ 750 MG in PREMIX 1 EACH IV SCH (16:50)
[2019-07-27] MEDS: ENOXAPARIN 40 MG/0.4 ML SYRINGE SUBCUT SCH (21:07)
[2019-07-28] MEDS: ALBUTEROL/IPRATROPIUM 3 ML NEB RESP TX SCH ×4 (00:43→19:46)
[2019-07-28] MEDS: PIPERACILLIN/TAZOBACTAM 3,375 MG in SODIUM CHLORIDE 0.9% 100 ML IV SCH ×3 (05:59→19:20)
[2019-07-28] MEDS: DORNASE ALFA 2.5 MG/2.5 ML VIAL RESP TX SCH ×2 (07:49→19:46)
[2019-07-28] MEDS: PANTOPRAZOLE 40 MG TABLET PO SCH (09:19)
[2019-07-28] MEDS: INSULIN REGULAR 100 UNIT/ML SUBCUT SCH ×4 (09:20→21:11)
[2019-07-28] MEDS ORDERED: BENZONATATE 100 MG CAPSULE PO PRN (10:05)
[2019-07-28] MEDS: ASPIRIN EC 81 MG TABLET PO SCH (11:53)
[2019-07-28] MEDS: methylPREDNISolone SOD SUC 40 MG/1 ML VIAL IV SCH ×2 (11:54→22:32)
[2019-07-28] MEDS: metFORMIN 500 MG TABLET PO SCH ×2 (11:54→17:30)
[2019-07-28] MEDS: GABAPENTIN 100 MG CAPSULE PO SCH ×2 (15:48→21:12)
[2019-07-28] MEDS: glipiZIDE 10 MG TABLET PO SCH (17:27)
[2019-07-28] MEDS: LEVOFLOXACIN INJ 750 MG in PREMIX 1 EACH IV SCH (17:31)
[2019-07-28] MEDS: ENOXAPARIN 40 MG/0.4 ML SYRINGE SUBCUT SCH (21:11)
[2019-07-28] MEDS: traZODone 50 MG TABLET PO SCH (21:12)
[2019-07-28] MEDS: ROSUVASTATIN 10 MG TABLET PO SCH (21:12)
[2019-07-28] MEDS: SERTRALINE 100 MG TABLET PO SCH (21:13)
[2019-07-28] MEDS: THEOPHYLLINE ER (24 HR) 200 MG CAPSULE PO SCH (21:13)
[2019-07-28] MEDS: ASENAPINE MALEATE 5 MG SL SCH (21:28)
[2019-07-28] MEDS ORDERED: ALBUTEROL 1.25 MG/3 ML NEB RESP TX PRN (22:34)
[2019-07-29] MEDS: PIPERACILLIN/TAZOBACTAM 3,375 MG in SODIUM CHLORIDE 0.9% 100 ML IV SCH ×4 (00:25→18:20)
[2019-07-29] MEDS: ALBUTEROL/IPRATROPIUM 3 ML NEB RESP TX SCH ×4 (03:05→19:40)
[2019-07-29 06:24] LABS: Basophils % 0.4 % (0.0-0.8); Eosinophils % 0.1 % (0.00-10.9); Hematocrit 35.8 VOL% (42.0-52.0); Hemoglobin 11.6 GM/DL (14.0-18.0); Immature Granulocytes % 4.3 %; Immature Granulocytes Absolute 0.39 #; Lymphocytes # 1.2 10*3/uL (1.4-4.0); Lymphocytes % 12.7 % (21.2-54.2); Mean Corpuscular HGB Conc 32.4 GM/DL (32-36); Mean Corpuscular Volume 88.8 FL (87-102); Mean Platelet Volume 11.1 FL (9.6-12.0); Monocytes % 6.6 % (1.7-12.7); Neutrophils % 75.9 % (38.7-73.9); Platelet Count 181 T/CUMM (130-400); Red Blood Count 4.03 MC/CUMM (3.8-5.5); Red Cell Distribution Width 14.4 % (9.3-17.3); White Blood Count 9.1 T/CUMM (4-12)
[2019-07-29] MEDS: glipiZIDE 10 MG TABLET PO SCH ×2 (06:52→16:09)
[2019-07-29 07:12] LABS: Calcium 9.2 MG/DL (8.5-10.1)
[2019-07-29] MEDS: DORNASE ALFA 2.5 MG/2.5 ML VIAL RESP TX SCH ×2 (08:11→19:40)
[2019-07-29] MEDS: metFORMIN 500 MG TABLET PO SCH ×3 (09:36→18:22)
[2019-07-29] MEDS: BICALUTAMIDE 50 MG TABLET PO SCH (09:37)
[2019-07-29] MEDS: GABAPENTIN 100 MG CAPSULE PO SCH ×3 (09:37→20:48)
[2019-07-29] MEDS: MAGNESIUM CHLORIDE 64 MG TABLET PO SCH (09:39)
[2019-07-29] MEDS: TOLTERODINE LA 4 MG CAPSULE PO SCH (09:40)
[2019-07-29] MEDS: PANTOPRAZOLE 40 MG TABLET PO SCH (09:40)
[2019-07-29] MEDS: ASPIRIN EC 81 MG TABLET PO SCH (09:40)
[2019-07-29] MEDS: INSULIN REGULAR 100 UNIT/ML SUBCUT SCH ×4 (09:40→20:49)
[2019-07-29] MEDS: FLUTICASONE UMECLIDIN VILANTER INH SCH (13:11)
[2019-07-29] MEDS: methylPREDNISolone SOD SUC 40 MG/1 ML VIAL IV SCH (13:11)
[2019-07-29] MEDS: ACETAMINOPHEN 325 MG TABLET PO PRN (16:10)
[2019-07-29] MEDS: LEVOFLOXACIN INJ 750 MG in PREMIX 1 EACH IV SCH (16:17)
[2019-07-29] MEDS: THEOPHYLLINE ER (24 HR) 200 MG CAPSULE PO SCH (20:48)
[2019-07-29] MEDS: ROSUVASTATIN 10 MG TABLET PO SCH (20:48)
[2019-07-29] MEDS: SERTRALINE 100 MG TABLET PO SCH (20:48)
[2019-07-29] MEDS: BENZONATATE 100 MG CAPSULE PO SCH (20:49)
[2019-07-29] MEDS: traZODone 50 MG TABLET PO SCH (20:49)
[2019-07-29] MEDS: ASENAPINE MALEATE 5 MG SL SCH (20:49)
[2019-07-29] MEDS: ENOXAPARIN 40 MG/0.4 ML SYRINGE SUBCUT SCH (20:50)
[2019-07-30] MEDS: ALBUTEROL/IPRATROPIUM 3 ML NEB RESP TX SCH ×5 (00:35→23:55)
[2019-07-30] MEDS: methylPREDNISolone SOD SUC 40 MG/1 ML VIAL IV SCH ×3 (00:54→23:44)
[2019-07-30] MEDS: PIPERACILLIN/TAZOBACTAM 3,375 MG in SODIUM CHLORIDE 0.9% 100 ML IV SCH ×5 (00:55→23:49)
[2019-07-30] MEDS: DORNASE ALFA 2.5 MG/2.5 ML VIAL RESP TX SCH ×2 (08:24→19:07)
[2019-07-30] MEDS: metFORMIN 500 MG TABLET PO SCH ×3 (09:04→17:06)
[2019-07-30] MEDS: BENZONATATE 100 MG CAPSULE PO SCH ×3 (09:05→20:54)
[2019-07-30] MEDS: BICALUTAMIDE 50 MG TABLET PO SCH (09:05)
[2019-07-30] MEDS: glipiZIDE 10 MG TABLET PO SCH ×2 (09:05→16:45)
[2019-07-30] MEDS: TOLTERODINE LA 4 MG CAPSULE PO SCH (09:05)
[2019-07-30] MEDS: ASPIRIN EC 81 MG TABLET PO SCH (09:06)
[2019-07-30] MEDS: MAGNESIUM CHLORIDE 64 MG TABLET PO SCH (09:06)
[2019-07-30] MEDS: PANTOPRAZOLE 40 MG TABLET PO SCH (09:06)
[2019-07-30] MEDS: GABAPENTIN 100 MG CAPSULE PO SCH ×3 (09:06→20:54)
[2019-07-30] MEDS: INSULIN REGULAR 100 UNIT/ML SUBCUT SCH ×4 (09:06→20:55)
[2019-07-30] MEDS: FLUTICASONE UMECLIDIN VILANTER INH SCH (09:12)
[2019-07-30] MEDS: LEVOFLOXACIN INJ 750 MG in PREMIX 1 EACH IV SCH (17:07)
[2019-07-30] MEDS: ROSUVASTATIN 10 MG TABLET PO SCH (20:53)
[2019-07-30] MEDS: ASENAPINE MALEATE 5 MG SL SCH (20:53)
[2019-07-30] MEDS: THEOPHYLLINE ER (24 HR) 200 MG CAPSULE PO SCH (20:54)
[2019-07-30] MEDS: SERTRALINE 100 MG TABLET PO SCH (20:55)
[2019-07-30] MEDS: ENOXAPARIN 40 MG/0.4 ML SYRINGE SUBCUT SCH (20:55)
[2019-07-30] MEDS: traZODone 50 MG TABLET PO SCH (20:57)
[2019-07-30] MEDS: ACETAMINOPHEN 325 MG TABLET PO PRN (21:32)
[2019-07-31 05:29] LABS: Basophils # 0.1 10*3/uL (0.0-0.2); Basophils % 0.6 % (0.0-0.8); Eosinophils % 0.2 % (0.00-10.9); Hematocrit 36.2 VOL% (42.0-52.0); Hemoglobin 11.8 GM/DL (14.0-18.0); Immature Granulocytes % 7.8 %; Immature Granulocytes Absolute 0.72 #; Lymphocytes % 11.1 % (21.2-54.2); Mean Corpuscular HGB Conc 32.6 GM/DL (32-36); Mean Corpuscular Volume 88.7 FL (87-102); Mean Platelet Volume 11.2 FL (9.6-12.0); Neutrophils % 75.3 % (38.7-73.9); Platelet Count 187 T/CUMM (130-400); Red Blood Count 4.08 MC/CUMM (3.8-5.5); Red Cell Distribution Width 14.4 % (9.3-17.3); White Blood Count 9.2 T/CUMM (4-12)
[2019-07-31 05:36] LABS: Partial Thromboplastin Time 26.6 SECS (20.8-36.0)
[2019-07-31 05:50] LABS: Calcium 8.7 MG/DL (8.5-10.1); Osmolality,Calculated 282.2 MOS/KG (273-304)
[2019-07-31 06:02] LABS: Eosinophils 1 % (0-10); Hypochromasia Slight; Lymphocytes 15 % (20-55); Microcytosis Slight; Myelocytes 2 %; Segmented Neutrophils 79 % (50-85); Total Cells Counted 100
[2019-07-31 06:03] LABS: Platelet Estimate Adequate
[2019-07-31] MEDS: PIPERACILLIN/TAZOBACTAM 3,375 MG in SODIUM CHLORIDE 0.9% 100 ML IV SCH ×4 (06:12→23:54)
[2019-07-31] MEDS: DORNASE ALFA 2.5 MG/2.5 ML VIAL RESP TX SCH ×3 (07:42→19:45)
[2019-07-31] MEDS: ALBUTEROL/IPRATROPIUM 3 ML NEB RESP TX SCH ×3 (07:42→19:38)
[2019-07-31] MEDS ORDERED: BENZONATATE 100 MG CAPSULE PO ONE (08:00)
[2019-07-31] MEDS ORDERED: MEPERIDINE 25 MG/1 ML VIAL IM ONE (08:00)
[2019-07-31] MEDS ORDERED: diphenhydrAMINE 50 MG/1 ML VIAL IM ONE (08:00)
[2019-07-31] MEDS ORDERED: LIDOCAINE 2% 20 ML VIAL RESP TX ONE (08:30)
[2019-07-31] MEDS ORDERED: LIDOCAINE 1% 20 ML VIAL MISC INJ ONE (08:30)
[2019-07-31] MEDS ORDERED: LIDOCAINE 2% VISCOUS 100 ML BOTTLE SWISH/SPIT ONE (08:30)
[2019-07-31] MEDS ORDERED: MIDAZOLAM 2 MG/2 ML VIAL ONE (08:54)
[2019-07-31] MEDS ORDERED: DEXTROSE 50% 25 GM/50 ML VIAL IV PRN (10:40)
[2019-07-31] MEDS ORDERED: GLUCAGON 1 MG VIAL IM PRN (10:40)
[2019-07-31] MEDS: INSULIN REGULAR 100 UNIT/ML SUBCUT SCH ×4 (10:47→21:00)
[2019-07-31] MEDS: ASPIRIN EC 81 MG TABLET PO SCH (11:03)
[2019-07-31] MEDS: GABAPENTIN 100 MG CAPSULE PO SCH ×3 (11:03→20:58)
[2019-07-31] MEDS: BICALUTAMIDE 50 MG TABLET PO SCH (11:04)
[2019-07-31] MEDS: TOLTERODINE LA 4 MG CAPSULE PO SCH (11:04)
[2019-07-31] MEDS: metFORMIN 500 MG TABLET PO SCH ×3 (11:05→16:06)
[2019-07-31] MEDS: glipiZIDE 10 MG TABLET PO SCH ×2 (11:05→16:05)
[2019-07-31] MEDS: MAGNESIUM CHLORIDE 64 MG TABLET PO SCH (11:06)
[2019-07-31] MEDS: PANTOPRAZOLE 40 MG TABLET PO SCH (11:06)
[2019-07-31] MEDS: methylPREDNISolone SOD SUC 40 MG/1 ML VIAL IV SCH ×2 (11:07→23:50)
[2019-07-31] MEDS: BENZONATATE 100 MG CAPSULE PO SCH ×3 (11:07→20:58)
[2019-07-31] MEDS: FLUTICASONE UMECLIDIN VILANTER INH SCH (11:09)
[2019-07-31] MEDS: LEVOFLOXACIN INJ 750 MG in PREMIX 1 EACH IV SCH (16:04)
[2019-07-31] MEDS: ROSUVASTATIN 10 MG TABLET PO SCH (18:21)
[2019-07-31] MEDS: SERTRALINE 100 MG TABLET PO SCH (20:58)
[2019-07-31] MEDS: traZODone 50 MG TABLET PO SCH (20:58)
[2019-07-31] MEDS: THEOPHYLLINE ER (24 HR) 200 MG CAPSULE PO SCH (20:58)
[2019-07-31] MEDS: ENOXAPARIN 40 MG/0.4 ML SYRINGE SUBCUT SCH (20:58)
[2019-07-31] MEDS: ASENAPINE MALEATE 5 MG SL SCH (21:00)
[2019-08-01] MEDS: ALBUTEROL/IPRATROPIUM 3 ML NEB RESP TX SCH ×3 (00:29→12:07)
[2019-08-01] MEDS: PIPERACILLIN/TAZOBACTAM 3,375 MG in SODIUM CHLORIDE 0.9% 100 ML IV SCH ×2 (06:07→10:53)
[2019-08-01] MEDS: DORNASE ALFA 2.5 MG/2.5 ML VIAL RESP TX SCH (07:23)
[2019-08-01] MEDS: INSULIN REGULAR 100 UNIT/ML SUBCUT SCH ×2 (08:52→11:45)
[2019-08-01] MEDS: BICALUTAMIDE 50 MG TABLET PO SCH (08:53)
[2019-08-01] MEDS: PANTOPRAZOLE 40 MG TABLET PO SCH (08:53)
[2019-08-01] MEDS: TOLTERODINE LA 4 MG CAPSULE PO SCH (08:53)
[2019-08-01] MEDS: metFORMIN 500 MG TABLET PO SCH ×2 (08:53→11:54)
[2019-08-01] MEDS: GABAPENTIN 100 MG CAPSULE PO SCH (08:54)
[2019-08-01] MEDS: MAGNESIUM CHLORIDE 64 MG TABLET PO SCH (08:54)
[2019-08-01] MEDS: glipiZIDE 10 MG TABLET PO SCH (08:54)
[2019-08-01] MEDS: ASPIRIN EC 81 MG TABLET PO SCH (08:55)
[2019-08-01] MEDS: FLUTICASONE UMECLIDIN VILANTER INH SCH (08:55)
[2019-08-01] MEDS: BENZONATATE 100 MG CAPSULE PO SCH (08:55)
[2019-08-01 11:27] VITALS: BP 136/69
[2019-08-01] MEDS: methylPREDNISolone SOD SUC 40 MG/1 ML VIAL IV SCH (11:43)
[2019-08-02] MEDS ORDERED: LEVOFLOXACIN 500 MG TABLET PO SCH (09:00)
[2019-08-02] MEDS ORDERED: predniSONE 10 MG TABLET PO SCH (09:00)
== END 2019-08-01 14:30 | disposition home or self-care (01) | DRG 163 ==
LOC: N.EDINP 12:46 → N.ED 12:46 → SUATTDRO 14:37 → N.EDINP 17:45 → N.4E 18:13
PROVIDERS: ADMIT Internal Medicine; ATTEND Hospitalist